=== PATIENT | male | born 2005 | race Caucasian/White ===

== ENCOUNTER 2024-04-09 02:10 | Emergency (ER) | payer SELFPAY ==
[~2024-04-09] VITALS: Ht 170.2 cm; Wt 61.2 kg
[2024-04-09] MEDS: IV NORMAL SALINE 1000 ML BAG IV ONE (02:48)
[2024-04-09] MEDS ORDERED: ONDANSETRON 4 MG/2 ML VIAL ONE (02:49)
[2024-04-09] MEDS: ONDANSETRON 4 MG/2 ML VIAL IV ONE (02:50)
[2024-04-09] MEDS: LORAZEPAM 2 MG/1 ML VIAL IV ONE (02:51)
[2024-04-09 02:54] LABS: BASOPHILS % (AUTO) 0.3 % (0.0-2.0); EOSINOPHILS % (AUTO) 0.1 % (0.0-7.0); HEMATOCRIT 46.8 % (36.7-47.1); HEMOGLOBIN 16.2 g/dL (12.5-16.3); LYMPHOCYTES # (AUTO) 0.2 K/uL (0.8-4.8); LYMPHOCYTES % (AUTO) 3.3 % (20.5-74.5); MEAN CORPUSCULAR HEMOGLOBIN 28.6 uug (23.8-33.4); MEAN CORPUSCULAR HGB CONC 35 g/dL (32.5-36.3); MEAN CORPUSCULAR VOLUME 82.4 fL (73.0-96.2); MONOCYTES # (AUTO) 0.2 K/uL (0.1-1.30); MONOCYTES % (AUTO) 3.6 % (0-11); NEUTROPHILS # (AUTO) 5.8 K/uL (1.8-8.9); NEUTROPHILS % (AUTO) 92.7 % (31.5-64.5); PLATELET COUNT (AUTO) 182 K/uL (152-348); RED BLOOD CELL COUNT(AUTO) 5.68 MIL/uL (4.06-5.63); RED CELL DISTRIBUTION WIDTH 12.9 % (12.1-16.2); WHITE BLOOD COUNT (AUTO) 6.3 K/uL (3.6-10.2)
[2024-04-09] MEDS: IV LACTATED RINGERS SOLUTION 1,000 ML IV ONE (03:24)
[2024-04-09 03:40] LABS: ALANINE AMINOTRANSFERASE 14 U/L (16-63); ALBUMIN 4.2 g/dL (3.4-5.0); ALKALINE PHOSPHATASE 70 U/L (50-136); ASPARTATE AMINOTRANSFERASE < 5 U/L (15-37); BILIRUBIN,DIRECT 0.2 mg/dL (0.0-0.2); CALCIUM 8.7 mg/dL (8.5-10.1); CARBON DIOXIDE 25 mmol/L (21-32); CHLORIDE 103 mmol/L (98-107); CREATININE 1.1 mg/dL (0.6-1.3); GLUCOSE 133 mg/dL (74-106); POTASSIUM 4.2 mmol/L (3.5-5.1); SODIUM SERUM 140 mmol/L (136-145); TOTAL PROTEIN, SERUM 7.6 g/dL (6.4-8.2); UREA NITROGEN, BLOOD 15 mg/dL (7-18)
[2024-04-09 03:50] LABS: DIFFERENTIAL COMMENT 1
[2024-04-09] MEDS ORDERED: ONDA4TAB11 PO (04:07)
[2024-04-09 04:25] VITALS: BP 91/56; TEMP 98; O2SAT 100
[2024-04-09 04:47] LABS: LIPASE 21 U/L (16-77)
== END 2024-04-09 04:27 | disposition home or self-care (01) ==
LOC: ER 02:22
DX: R19.7 Diarrhea, unspecified (principal); R11.2 Nausea with vomiting, unspecified
CPT/HCPCS: 36415; 83690; 85025; A4606; A4663; J2405; J7040; J7120